=== PATIENT | female | born 1990 | race Caucasian/White ===

== ENCOUNTER 2017-06-08 19:21 | Emergency (ER) | payer MEDICAID ==
[2017-06-08 20:26] LABS: APPEARANCE CLEAR (CLEAR); BILIRUBIN NEGATIVE (NEGATIVE); COLOR YELLOW (YELLOW); GLUCOSE NEGATIVE (NEGATIVE); KETONE NEGATIVE (NEGATIVE); NITRITE NEGATIVE (NEGATIVE); PROTEIN NEGATIVE (NEGATIVE); UROBILINOGEN NORMAL (NORMAL)
[2017-06-08 20:28] LABS: HCG URINE NEGATIVE (NEGATIVE)
[2017-06-11 19:09] LABS: CHLAMYDIA TRACHOMATIS, NAA Negative (Negative)
== END 2017-06-08 21:15 | disposition home or self-care (01) ==
LOC: D.ER 19:21
PROVIDERS: Family Medicine; Nurse Practitioner Family
DX: R10.2 Pelvic and perineal pain (principal); N89.8 Other specified noninflammatory disorders of vagina

== ENCOUNTER 2017-07-12 13:46 | Emergency (ER) | payer MEDICAID ==
[2017-07-12 15:21] LABS: HCG URINE NEGATIVE (NEGATIVE)
[2017-07-12 20:36] LABS: HCG SERUM NEGATIVE (NEGATIVE)
[2017-07-12 20:39] LABS: APPEARANCE HAZY (CLEAR); BACTERIA MODERATE /hpf (NONE SEEN); BILIRUBIN NEGATIVE (NEGATIVE); COLOR YELLOW (YELLOW); EPITHELIAL CELLS 0-5 /hpf (0-5); GLUCOSE NEGATIVE (NEGATIVE); KETONE MODERATE mg/dL (NEGATIVE); NITRITE NEGATIVE (NEGATIVE); PROTEIN NEGATIVE (NEGATIVE); SPECIFIC GRAVITY 1.015 (1.005-1.020); UROBILINOGEN NORMAL (NORMAL); WHITE CELLS - URINE 0-5 /hpf (0-5)
== END 2017-07-12 21:00 | disposition home or self-care (01) ==
LOC: D.ER 13:46
PROVIDERS: Family Medicine; Physician Assistant
DX: N76.0 Acute vaginitis (principal)

== ENCOUNTER 2020-01-18 16:07 | Emergency (ER) | payer MEDICAID ==
[~2020-01-18] VITALS: Ht 154.9 cm; Wt 90.9 kg
[2020-01-18 16:26] VITALS: BP 125/70; Ht 154.9 cm; Wt 90.9 kg
[2020-01-18 17:13] LABS: BASOPHILS 0.3 % (0-2); EOSINOPHILS 1.8 % (0-7); HEMATOCRIT 43.2 % (36.0-48.0); IMMATURE GRANULOCYTES 0.2 % (0-5); LYMPHOCYTES 26.2 % (15-50); MCHC 32.4 g/dL (31.0-37.0); MCV 89.6 fL (80.0-100.0); MEAN PLATELET VOLUME 10.1 fL (7.4-10.4); MONOCYTES 6.1 % (2-11); NEUTROPHILS 65.4 % (40-80); PLATELET COUNT 228 10x3/uL (130-400); RBC 4.82 10x6/uL (4.00-5.40); RDW 12.9 % (11.5-14.5); WBC 6.3 10x3/uL (4.8-10.8)
[2020-01-18 17:14] LABS: CALC OSMOLALITY 280 mosm/kg (275-300); CALCIUM 9.3 mg/dL (8.5-10.1); CARBON DIOXIDE 28.5 mmol/L (21.0-32.0); CHLORIDE - SERUM 107 mmol/L (98-107); CREATININE - SERUM 0.7 mg/dL (0.6-1.3); GLUCOSE 97 mg/dL (74-106); POTASSIUM - SERUM 3.7 mmol/L (3.5-5.1); SODIUM 142 mmol/L (136-145); UREA NITROGEN 7 mg/dL (7-18); eGFR NON AFRICAN AMERICAN > 90 mL/min (90-120)
[2020-01-18 17:29] LABS: ALKALINE PHOSPHATASE 72 U/L (30-120); ALT (SGPT) 19 U/L (10-68); BILIRUBIN - TOTAL 0.38 mg/dL (0.2-1.3); CREATINE KINASE 48 UL (21-215); MAGNESIUM - SERUM 2.2 mg/dL (1.8-2.4)
[2020-01-18 17:33] LABS: TROPONIN-I < 0.017 ng/mL (0.000-0.060)
[2020-01-18 17:44] LABS: APTT 30.7 SECONDS (22.8-39.4); INR 1.03 (0.85-1.17); PROTIME 13.4 SECONDS (11.6-15.0)
== END 2020-01-19 07:25 | disposition left against medical advice (07) ==
LOC: D.ER 16:07
PROVIDERS: Emergency Medicine
DX: R07.9 Chest pain, unspecified (principal)

== ENCOUNTER 2020-02-04 21:10 | Emergency (ER) | payer MEDICAID ==
[~2020-02-04] VITALS: Ht 154.9 cm; Wt 90.0 kg
[2020-02-04 21:15] VITALS: BP 116/76; Ht 154.9 cm; Wt 90.0 kg
[2020-02-04] MEDS ORDERED: [UNRECOGNIZED DRUG - REMARK] (21:18)
[2020-02-04] MEDS ORDERED: GABAPENTIN100 MG PO (21:18)
[2020-02-04] MEDS ORDERED: UNK ANTIDEPRESSANT (21:18)
[2020-02-04 21:43] LABS: BASOPHILS 0.5 % (0-2); EOSINOPHILS 0.9 % (0-7); HEMATOCRIT 44.5 % (36.0-48.0); HEMOGLOBIN 14.4 g/dL (12-16); IMMATURE GRANULOCYTES 0.2 % (0-5); LYMPHOCYTES 20.2 % (15-50); MCH 29.1 pg (26.0-34.0); MCHC 32.4 g/dL (31.0-37.0); MCV 90.1 fL (80.0-100.0); MEAN PLATELET VOLUME 9.7 fL (7.4-10.4); MONOCYTES 7.1 % (2-11); NEUTROPHILS 71.1 % (40-80); PLATELET COUNT 249 10x3/uL (130-400); RBC 4.94 10x6/uL (4.00-5.40); RDW 12.9 % (11.5-14.5); WBC 8.6 10x3/uL (4.8-10.8)
[2020-02-04 22:02] LABS: HCG SERUM NEGATIVE (NEGATIVE)
[2020-02-04 22:04] LABS: CALC OSMOLALITY 274 mosm/kg (275-300); CALCIUM 9.1 mg/dL (8.5-10.1); CARBON DIOXIDE 23.1 mmol/L (21.0-32.0); CHLORIDE - SERUM 106 mmol/L (98-107); CREATININE - SERUM 0.8 mg/dL (0.6-1.3); GLUCOSE 105 mg/dL (74-106); POTASSIUM - SERUM 3.5 mmol/L (3.5-5.1); SODIUM 137 mmol/L (136-145); UREA NITROGEN 14 mg/dL (7-18); eGFR NON AFRICAN AMERICAN 90 mL/min (90-120)
[2020-02-04 22:14] LABS: APTT 29.7 SECONDS (22.8-39.4); INR 0.98 (0.85-1.17)
[2020-02-04 22:15] LABS: D-DIMER-QUANTITATIVE < 0.27 ug/mLFEU (0.20-0.54)
[2020-02-04 22:20] LABS: ALBUMIN 3.9 g/dL (3.4-5.0); ALKALINE PHOSPHATASE 86 U/L (30-120); ALT (SGPT) 42 U/L (10-68); BILIRUBIN - TOTAL 0.41 mg/dL (0.2-1.3); CKMB 0.5 U/L (0.0-3.6); CREATINE KINASE 70 UL (21-215); PROTEIN - SERUM 7.3 g/dL (6.4-8.2)
[2020-02-04 22:21] LABS: TROPONIN-I < 0.017 ng/mL (0.000-0.060)
[2020-02-04 22:47] LABS: BILIRUBIN NEGATIVE (NEGATIVE); KETONE MODERATE mg/dL (NEGATIVE); NITRITE NEGATIVE (NEGATIVE); UROBILINOGEN NORMAL mg/dL (< 2)
[2020-02-04] MEDS ORDERED: VISTARIL50 MG PO (23:52)
== END 2020-02-05 00:31 | disposition home or self-care (01) ==
LOC: D.ER 21:10
PROVIDERS: Emergency Medicine
DX: R07.9 Chest pain, unspecified (principal); F41.9 Anxiety disorder, unspecified

== ENCOUNTER 2020-02-08 21:13 | Emergency (ER) | payer MEDICAID ==
[~2020-02-08] VITALS: Ht 154.9 cm; Wt 90.9 kg
[~2020-02-08 21:13] MED LIST: GABAPENTIN100 MG PO; UNK ANTIDEPRESSANT; VISTARIL50 MG PO; [UNRECOGNIZED DRUG - REMARK]
[2020-02-08 21:19] VITALS: Ht 154.9 cm; Wt 90.9 kg
[2020-02-08] MEDS ORDERED: AUGMENTIN 875-11 TAB PO (21:33)
--- NOTE | 2020-02-08 22:03 | NUR ---
PATIENT IN ER FOR EAR PAIN. SHE HAS A HISTORY OF DEPRESSION A TEENAGER, SHE IS NOT CURRENTLY DEPRESSED OR SUICIDIAL. SHE HAS A FAMILY MEMBER WITH HER AND HOLDS GOOD EYE CONTACT, SHE SEEMS TO BE SMILING BEHIND HER MASK. SHE IS FRIENDLY AND TALKATIVE. GIVEN 1-800 NUMBER FOR FUTURE REFERENCE
[2020-02-08 22:15] VITALS: BP 124/66
== END 2020-02-08 22:17 | disposition home or self-care (01) ==
LOC: D.ER 21:13
DX: H92.03 Otalgia, bilateral (principal); H65.93 Unspecified nonsuppurative otitis media, bilateral

== ENCOUNTER 2020-02-27 15:45 | Emergency (ER) | payer MEDICAID ==
[~2020-02-27] VITALS: Ht 154.9 cm; Wt 90.9 kg
[~2020-02-27 15:45] MED LIST changes: +AUGMENTIN 875-11 TAB PO
[2020-02-27 15:57] VITALS: BP 135/73; Ht 154.9 cm; Wt 90.9 kg
[2020-02-27 16:49] LABS: BASOPHILS 0.5 % (0-2); EOSINOPHILS 1.4 % (0-7); HEMATOCRIT 43.2 % (36.0-48.0); HEMOGLOBIN 13.9 g/dL (12-16); IMMATURE GRANULOCYTES 0.4 % (0-5); LYMPHOCYTES 25.4 % (15-50); MCH 28.9 pg (26.0-34.0); MCHC 32.2 g/dL (31.0-37.0); MCV 89.8 fL (80.0-100.0); MEAN PLATELET VOLUME 9.5 fL (7.4-10.4); NEUTROPHILS 60.3 % (40-80); PLATELET COUNT 249 10x3/uL (130-400); RBC 4.81 10x6/uL (4.00-5.40); RDW 12.8 % (11.5-14.5); WBC 5.6 10x3/uL (4.8-10.8)
[2020-02-27 17:07] LABS: APTT 32.4 SECONDS (22.8-39.4); INR 1.03 (0.85-1.17); PROTIME 13.5 SECONDS (11.6-15.0)
[2020-02-27 17:13] LABS: CALC OSMOLALITY 277 mosm/kg (275-300); CALCIUM 9.1 mg/dL (8.5-10.1); CARBON DIOXIDE 23.9 mmol/L (21.0-32.0); CHLORIDE - SERUM 107 mmol/L (98-107); CREATININE - SERUM 0.7 mg/dL (0.6-1.3); GLUCOSE 101 mg/dL (74-106); POTASSIUM - SERUM 3.5 mmol/L (3.5-5.1); SODIUM 139 mmol/L (136-145); UREA NITROGEN 12 mg/dL (7-18); eGFR NON AFRICAN AMERICAN > 90 mL/min (90-120)
[2020-02-27 17:31] LABS: ALBUMIN 3.9 g/dL (3.4-5.0); ALKALINE PHOSPHATASE 84 U/L (30-120); ALT (SGPT) 24 U/L (10-68); BILIRUBIN - TOTAL 0.21 mg/dL (0.2-1.3); CKMB 0.4 U/L (0.0-3.6); CREATINE KINASE 63 UL (21-215); PROTEIN - SERUM 7.4 g/dL (6.4-8.2); TROPONIN-I < 0.017 ng/mL (0.000-0.060)
[2020-02-27] MEDS ORDERED: OMEPRAZOLE40 MG PO (19:48)
[2020-02-27] MEDS ORDERED: ATARAX 25 MG TA25 MG PO (19:48)
[2020-02-27] MEDS ORDERED: ZPAK PO (19:48)
== END 2020-02-27 20:27 | disposition home or self-care (01) ==
LOC: D.ER 15:45
PROVIDERS: Family Medicine
DX: F41.9 Anxiety disorder, unspecified (principal); K21.9 Gastro-esophageal reflux disease without esophagitis; T28.1XXA Burn of esophagus, initial encounter; H66.90 Otitis media, unspecified, unspecified ear; R07.89 Other chest pain